=== PATIENT | female | born 1940 | race Asian ===

== ENCOUNTER → 2017-06-08 | Outpatient (CLI) | payer MEDICARE, OTHER ==
[~2017-06-08] MED LIST: ALLERCLEAR; ASCO250CH PO; ASPI81CH PO; CALCA500CH PO; CALCAVITD PO; CEFTR1PB IV; CENTRUM COMPLE1 EACH PO; Cleocin HCl150 MG PO; DIPATR PO; DIPH50 PO; DONE5 PO; ERGO400 PO; GLUCHON PO; LEVA1.25 IH; LEVFLO500 PO; MAGNESIUM; MELO7.5 PO; MULVITMINE PO; NAMENDA XR7 MG PO; OXYC5; POTASSIUM GLUCO99 MG PO; PRAV20 PO; SENN187; Zofran Odt4 MG PO
== END | disposition home or self-care (01) ==
LOC: LAB EV 19:03
DX: T24.201A Burn of second degree of unspecified site of right lower limb, except ankle and foot, initial encounter (principal)
CPT/HCPCS: 87070; 87077; 87086; 87186; 87205

== ENCOUNTER → 2017-10-04 | Outpatient (CLI) | payer MEDICARE, OTHER ==
[~2017-10-04] MED LIST changes: -LEVFLO500 PO; -Zofran Odt4 MG PO
[2017-10-04 09:47] LABS: Bilirubin, Urine Neg (Neg); Blood, Urine 3+ (Neg); Glucose Qualitative, Urine Neg (Neg); Ketones, Urine Neg (Neg); Leukocyte Esterase, Urine 3+ (Neg); Nitrite, Urine Neg (Neg); Protein, Urine 1+ (Neg); Specific Gravity, Urine 1.025 (1.003-1.022); Urobilinogen, Urine NORM (Normal)
[2017-10-04 09:57] LABS: Appearance, Urine Hazy (Clear); Color, Urine Yellow (P-Yellow)
[2017-10-04 10:02] LABS: Red Blood Cells, Urine Rare /hpf (0-2); Squamous Epithelial Cells Few /hpf (Few)
[2017-10-04 10:03] LABS: Bacteria Many /hpf
[2017-10-04 10:04] LABS: Calcium Oxalate Crystals Few /hpf
== END ==
LOC: LAB SHORT 09:38 → LAB 09:38
PROVIDERS: Internal Medicine
DX: R34 Anuria and oliguria (principal)
CPT/HCPCS: 81001; 87077; 87086; 87186

== ENCOUNTER 2018-02-02 18:35 | Emergency (ER) | payer MEDICARE, OTHER ==
[~2018-02-02] VITALS: Ht 149.9 cm; Wt 37.6 kg
== END 2018-02-02 19:44 | disposition home or self-care (01) ==
LOC: ER 18:35
DX: R04.0 Epistaxis (principal); K52.9 Noninfective gastroenteritis and colitis, unspecified; F03.90 Unspecified dementia, unspecified severity, without behavioral disturbance, psychotic disturbance, mood disturbance, and anxiety
CPT/HCPCS: 30901; 99283

== ENCOUNTER → 2018-08-21 | Outpatient (CLI) | payer MEDICARE, OTHER ==
[~2018-08-21] MED LIST changes: +LEVFLO500 PO; +Zofran Odt4 MG PO
== END | disposition home or self-care (01) ==
LOC: LAB SHORT 10:30 → LAB EV 10:30
DX: R35.8 Other polyuria (principal)
CPT/HCPCS: 87086

== ENCOUNTER → 2018-08-23 | Outpatient (CLI) | payer MEDICARE, OTHER | END | disposition home or self-care (01) | LOC: LAB SHORT 14:40 → LAB EV 14:40 | DX: R82.79 Other abnormal findings on microbiological examination of urine (principal) | CPT/HCPCS: 87086 ==

== ENCOUNTER 2018-08-25 22:47 | Emergency (ER) | payer MEDICARE, OTHER ==
[~2018-08-25] VITALS: Ht 152.4 cm; Wt 34.9 kg
== END 2018-08-26 00:15 | disposition home or self-care (01) ==
LOC: ER 22:47
DX: R31.9 Hematuria, unspecified (principal); J44.9 Chronic obstructive pulmonary disease, unspecified; I48.91 Unspecified atrial fibrillation; Z79.899 Other long term (current) drug therapy; Z79.82 Long term (current) use of aspirin
CPT/HCPCS: 99282

== ENCOUNTER 2018-09-13 02:48 | Emergency (ER) | payer MEDICARE, OTHER ==
[~2018-09-13] VITALS: Ht 152.4 cm; Wt 34.9 kg
[2018-09-13 03:29] LABS: Source, Urine Catheter
[2018-09-13 03:32] LABS: Bilirubin, Urine Neg (Neg); Blood, Urine 5+ (Neg); Glucose Qualitative, Urine Neg (Neg); Ketones, Urine Neg (Neg); Leukocyte Esterase, Urine 3+ (Neg); Nitrite, Urine Pos (Neg); Protein, Urine 3+ (Neg); Specific Gravity, Urine 1.025 (1.003-1.022); Urobilinogen, Urine NORM (Normal)
[2018-09-13 03:35] LABS: Appearance, Urine Turbid (Clear); Color, Urine Yellow (P-Yellow)
[2018-09-13] MEDS ORDERED: CEFD300 PO (03:38)
[2018-09-13 03:41] LABS: Bacteria Many /hpf; Red Blood Cells, Urine TNTC /hpf (0-2); Squamous Epithelial Cells Few /hpf (Few); White Blood Cells, Urine TNTC /hpf (0-5)
== END 2018-09-13 04:36 | disposition home or self-care (01) ==
LOC: ER 02:48
PROVIDERS: Emergency Medicine
DX: N39.0 Urinary tract infection, site not specified (principal); Z79.899 Other long term (current) drug therapy; Z79.82 Long term (current) use of aspirin; J44.9 Chronic obstructive pulmonary disease, unspecified; I48.91 Unspecified atrial fibrillation
CPT/HCPCS: 51702; 51798; 81001; 87077; 87086; 87186; 99283-25

== ENCOUNTER 2019-02-12 21:48 | Emergency (ER) | payer MEDICARE, OTHER ==
[~2019-02-12] VITALS: Ht 152.4 cm; Wt 35.8 kg
[~2019-02-12 21:48] MED LIST changes: +CEFD300 PO
== END 2019-02-13 02:47 | disposition home or self-care (01) ==
LOC: ER 21:48
DX: L50.9 Urticaria, unspecified (principal); M19.90 Unspecified osteoarthritis, unspecified site; J44.9 Chronic obstructive pulmonary disease, unspecified; I48.91 Unspecified atrial fibrillation; Z79.82 Long term (current) use of aspirin; Z79.899 Other long term (current) drug therapy
CPT/HCPCS: 96372; 99283; J3301; J7512; Q0163

== ENCOUNTER → 2019-04-20 | Outpatient (CLI) | payer MEDICARE, OTHER | END | disposition home or self-care (01) | LOC: LAB EV 16:13 → LAB SHORT 16:13 | DX: N39.0 Urinary tract infection, site not specified (principal) | CPT/HCPCS: 87077; 87086; 87186 ==

== ENCOUNTER → 2019-05-11 | Outpatient (CLI) | payer MEDICARE, OTHER ==
[2019-05-11 11:52] LABS: BASOPHILS ABSOLUTE AUTO 0.04 K/mm3 (0.00-0.23); BASOPHILS PERCENT AUTO 1 % (0-2); EOSINOPHILS ABSOLUTE AUTO 0.01 K/mm3 (0.00-0.68); EOSINOPHILS PERCENT AUTO 0 % (0-6); Hematocrit 47.2 % (33.0-51.0); Hemoglobin 15.5 g/dL (11.5-16.0); IMMATURE GRAN PERCENT AUTO 0 % (0-1); LYMPHOCYTES ABSOLUTE AUTO 1.18 K/mm3 (0.84-5.20); LYMPHOCYTES PERCENT AUTO 27 % (21-46); MONOCYTES ABSOLUTE AUTO 0.25 K/mm3 (0.16-1.47); MONOCYTES PERCENT AUTO 6 % (4-13); Mean Corpuscular HGB 31.3 pg (26.0-34.0); Mean Corpuscular HGB Conc 32.8 g/dL (31.5-36.5); Mean Corpuscular Volume 95 fL (80-100); Mean Platelet Volume 10.3 fL (9.1-12.4); NEUTROPHILS ABSOLUTE AUTO 2.94 K/mm3 (1.96-9.15); NEUTROPHILS PERCENT AUTO 67 % (41-73); Platelet Count 178 K/mm3 (150-400); RDW Coefficient Variation 12.7 % (11.7-14.2); RDW Standard Deviation 44.5 fL (35.1-46.3); Red Blood Cell Count 4.95 M/mm3 (3.80-5.20); White Blood Cell Count 4.42 K/mm3 (4.00-11.30)
[2019-05-11 12:18] LABS: Alanine Aminotransfer (ALT/SGP 28 U/L (12-78); Albumin, Blood 4.1 g/dL (3.4-5.0); Albumin/Globulin Ratio 1.4 (0.8-1.8); Alk Phos 63 U/L (40-126); Anion Gap 8 mmol/L (6-16); Bilirubin, Total 0.9 mg/dL (0.1-1.0); Blood Urea Nitrogen 14 mg/dL (8-24); Bun/Creatinine Ratio 36.8 (12.0-20.0); CO2, Blood 27 mmol/L (21-32); Calcium, Blood 9.2 mg/dL (8.5-10.1); Chloride, Blood 103 mmol/L (98-108); Creatinine, Blood 0.38 mg/dL (0.40-1.00); Glomerular Filtration Rate >60 (60-); Glucose, Blood 94 mg/dL (70-99); Potassium, Blood 4.3 mmol/L (3.5-5.5); Sodium, Blood 138 mmol/L (136-145); Total Protein, Blood 7.1 g/dL (6.4-8.2)
[2019-05-11 12:32] LABS: Aspartate Aminotrans (AST/SGOT 26 U/L (12-37)
== END | disposition home or self-care (01) ==
LOC: LAB SHORT 11:48 → LAB EV 11:48
PROVIDERS: Physician Assistant Medical
DX: R53.83 Other fatigue (principal); N39.0 Urinary tract infection, site not specified
CPT/HCPCS: 80053; 84443; 85025; 87086

== ENCOUNTER → 2019-07-25 | Outpatient (CLI) | payer MEDICARE, OTHER | END | disposition home or self-care (01) | LOC: LAB SHORT 11:00 → LAB EV 11:00 | DX: L72.9 Follicular cyst of the skin and subcutaneous tissue, unspecified (principal) | CPT/HCPCS: 87070; 87205 ==

== ENCOUNTER → 2019-09-11 | Outpatient (CLI) | payer MEDICARE, OTHER ==
[2019-09-11 12:11] LABS: BASOPHILS ABSOLUTE AUTO 0.04 K/mm3 (0.00-0.23); BASOPHILS PERCENT AUTO 1 % (0-2); EOSINOPHILS ABSOLUTE AUTO 0.04 K/mm3 (0.00-0.68); EOSINOPHILS PERCENT AUTO 1 % (0-6); Hematocrit 44.4 % (33.0-51.0); Hemoglobin 14.4 g/dL (11.5-16.0); IMMATURE GRAN ABSOLUTE AUTO 0.01 K/mm3 (0.00-0.10); IMMATURE GRAN PERCENT AUTO 0 % (0-1); LYMPHOCYTES ABSOLUTE AUTO 1.33 K/mm3 (0.84-5.20); LYMPHOCYTES PERCENT AUTO 23 % (21-46); MONOCYTES ABSOLUTE AUTO 0.31 K/mm3 (0.16-1.47); MONOCYTES PERCENT AUTO 5 % (4-13); Mean Corpuscular HGB 30.6 pg (26.0-34.0); Mean Corpuscular HGB Conc 32.4 g/dL (31.5-36.5); Mean Corpuscular Volume 95 fL (80-100); Mean Platelet Volume 10.4 fL (9.1-12.4); NEUTROPHILS ABSOLUTE AUTO 4.18 K/mm3 (1.96-9.15); NEUTROPHILS PERCENT AUTO 71 % (41-73); Platelet Count 173 K/mm3 (150-400); RDW Coefficient Variation 13.1 % (11.7-14.2); RDW Standard Deviation 45.3 fL (35.1-46.3); White Blood Cell Count 5.91 K/mm3 (4.00-11.30)
[2019-09-11 12:33] LABS: Alanine Aminotransfer (ALT/SGP 23 U/L (12-78); Albumin, Blood 3.7 g/dL (3.4-5.0); Alk Phos 65 U/L (40-126); Anion Gap 6 mmol/L (6-16); Aspartate Aminotrans (AST/SGOT 24 U/L (12-37); Bilirubin, Total 0.6 mg/dL (0.1-1.0); Blood Urea Nitrogen 18 mg/dL (8-24); Bun/Creatinine Ratio 38.3 (12.0-20.0); CO2, Blood 32 mmol/L (21-32); Calcium, Blood 9.8 mg/dL (8.5-10.1); Chloride, Blood 107 mmol/L (98-108); Creatinine, Blood 0.47 mg/dL (0.40-1.00); Globulin, Blood 3.7 g/dL (2.2-4.0); Glomerular Filtration Rate >60 (60-); Glucose, Blood 89 mg/dL (70-99); Potassium, Blood 4.2 mmol/L (3.5-5.5); Sodium, Blood 145 mmol/L (136-145); Total Protein, Blood 7.4 g/dL (6.4-8.2)
== END | disposition home or self-care (01) ==
LOC: LAB EV 12:07 → LAB SHORT 12:07
PROVIDERS: Physician Assistant
DX: R53.83 Other fatigue (principal); R94.6 Abnormal results of thyroid function studies
CPT/HCPCS: 80053; 84439; 84443; 84481; 85025; 87077; 87086; 87186

== ENCOUNTER → 2019-11-10 | Outpatient (CLI) | payer MEDICARE, OTHER ==
[~2019-11-10] MED LIST changes: +ASCO500 PO; +CALCIUM 600 +1 EA11 PO; +CENTRUM SILVER1 EAC2; +CEPH500 PO; +Citalopram HBr20 MG PO; +KEFLEX500 MG PO; +LORAZEPAM0.5 MG PO; +MEGESTROL400 MG/11 PO; +MELATONIN5 M1 PO; +Nitrofurantoin100 M1 PO; +TOCO1000 PO; +TRAZ50 PO
[2019-11-10 12:43] LABS: BASOPHILS ABSOLUTE AUTO 0.06 K/mm3 (0.00-0.23); BASOPHILS PERCENT AUTO 1 % (0-2); EOSINOPHILS ABSOLUTE AUTO 0.07 K/mm3 (0.00-0.68); EOSINOPHILS PERCENT AUTO 1 % (0-6); Hematocrit 43.4 % (33.0-51.0); Hemoglobin 14.7 g/dL (11.5-16.0); IMMATURE GRAN ABSOLUTE AUTO 0.03 K/mm3 (0.00-0.10); IMMATURE GRAN PERCENT AUTO 0 % (0-1); LYMPHOCYTES ABSOLUTE AUTO 1.16 K/mm3 (0.84-5.20); LYMPHOCYTES PERCENT AUTO 15 % (21-46); MONOCYTES ABSOLUTE AUTO 0.43 K/mm3 (0.16-1.47); MONOCYTES PERCENT AUTO 6 % (4-13); Mean Corpuscular HGB 31.2 pg (26.0-34.0); Mean Corpuscular HGB Conc 33.9 g/dL (31.5-36.5); Mean Corpuscular Volume 92 fL (80-100); Mean Platelet Volume 10.3 fL (9.1-12.4); NEUTROPHILS ABSOLUTE AUTO 5.82 K/mm3 (1.96-9.15); NEUTROPHILS PERCENT AUTO 77 % (41-73); Platelet Count 199 K/mm3 (150-400); RDW Coefficient Variation 13.2 % (11.7-14.2); RDW Standard Deviation 44.5 fL (35.1-46.3); Red Blood Cell Count 4.71 M/mm3 (3.80-5.20); White Blood Cell Count 7.57 K/mm3 (4.00-11.30)
[2019-11-10 12:57] LABS: Alanine Aminotransfer (ALT/SGP 22 U/L (12-78); Albumin, Blood 3.6 g/dL (3.4-5.0); Albumin/Globulin Ratio 1.1 (0.8-1.8); Alk Phos 71 U/L (40-126); Anion Gap 15 mmol/L (6-16); Aspartate Aminotrans (AST/SGOT 25 U/L (12-37); Bilirubin, Total 0.6 mg/dL (0.1-1.0); Blood Urea Nitrogen 14 mg/dL (8-24); Bun/Creatinine Ratio 37.8 (12.0-20.0); CO2, Blood 20 mmol/L (21-32); Calcium, Blood 9.3 mg/dL (8.5-10.1); Chloride, Blood 104 mmol/L (98-108); Creatinine, Blood 0.37 mg/dL (0.40-1.00); Globulin, Blood 3.3 g/dL (2.2-4.0); Glomerular Filtration Rate >60 (60-); Glucose, Blood 98 mg/dL (70-99); Potassium, Blood 4.4 mmol/L (3.5-5.5); Sodium, Blood 139 mmol/L (136-145); Total Protein, Blood 6.9 g/dL (6.4-8.2)
== END | disposition home or self-care (01) ==
LOC: LAB SHORT 12:39 → LAB EV 12:39
PROVIDERS: Physician Assistant
DX: R10.9 Unspecified abdominal pain (principal)
CPT/HCPCS: 80053; 85025

== ENCOUNTER 2019-11-30 11:14 | Emergency (ER) | payer MEDICARE, OTHER ==
[~2019-11-30] VITALS: Ht 152.4 cm; Wt 32.7 kg
[~2019-11-30 11:14] MED LIST changes: -CENTRUM SILVER1 EAC2; -KEFLEX500 MG PO; -Nitrofurantoin100 M1 PO
[2019-11-30 11:59] LABS: BASOPHILS ABSOLUTE AUTO 0.06 K/mm3 (0.00-0.23); BASOPHILS PERCENT AUTO 1 % (0-2); EOSINOPHILS ABSOLUTE AUTO 0.05 K/mm3 (0.00-0.68); EOSINOPHILS PERCENT AUTO 1 % (0-6); Hemoglobin 14.3 g/dL (11.5-16.0); IMMATURE GRAN ABSOLUTE AUTO 0.01 K/mm3 (0.00-0.10); IMMATURE GRAN PERCENT AUTO 0 % (0-1); LYMPHOCYTES PERCENT AUTO 26 % (21-46); MONOCYTES ABSOLUTE AUTO 0.26 K/mm3 (0.16-1.47); MONOCYTES PERCENT AUTO 6 % (4-13); Mean Corpuscular HGB 30.1 pg (26.0-34.0); Mean Corpuscular HGB Conc 31.8 g/dL (31.5-36.5); Mean Corpuscular Volume 95 fL (80-100); NEUTROPHILS PERCENT AUTO 66 % (41-73); Platelet Count 180 K/mm3 (150-400); RDW Coefficient Variation 12.1 % (11.7-14.2); RDW Standard Deviation 42.1 fL (35.1-46.3); Red Blood Cell Count 4.75 M/mm3 (3.80-5.20); White Blood Cell Count 4.58 K/mm3 (4.00-11.30)
[2019-11-30 12:20] LABS: Alanine Aminotransfer (ALT/SGP 27 U/L (12-78); Albumin, Blood 3.4 g/dL (3.4-5.0); Albumin/Globulin Ratio 0.9 (0.8-1.8); Alk Phos 100 U/L (50-136); Anion Gap 5 mmol/L (6-16); Aspartate Aminotrans (AST/SGOT 23 U/L (12-37); Bilirubin, Total 0.6 mg/dL (0.1-1.0); Blood Urea Nitrogen 9 mg/dL (8-24); Bun/Creatinine Ratio 19.6 (12.0-20.0); CO2, Blood 30 mmol/L (21-32); Calcium, Blood 8.9 mg/dL (8.5-10.1); Chloride, Blood 103 mmol/L (98-108); Creatinine, Blood 0.46 mg/dL (0.40-1.00); Globulin, Blood 3.6 g/dL (2.2-4.0); Glomerular Filtration Rate >60 (60-); Glucose, Blood 102 mg/dL (70-99); Potassium, Blood 3.7 mmol/L (3.5-5.5); Sodium, Blood 138 mmol/L (136-145)
[2019-11-30] MEDS ORDERED: KEFLEX500 MG PO (12:35)
[2019-11-30] MEDS ORDERED: CENTRUM SILVER1 EAC2 (12:36)
[2019-11-30] MEDS ORDERED: Nitrofurantoin100 M1 PO (12:36)
== END 2019-11-30 15:55 | disposition home or self-care (01) ==
LOC: ER 11:14
PROVIDERS: Emergency Medicine
DX: R53.1 Weakness (principal); R63.0 Anorexia; G30.9 Alzheimer's disease, unspecified; F02.80 Dementia in other diseases classified elsewhere, unspecified severity, without behavioral disturbance, psychotic disturbance, mood disturbance, and anxiety
CPT/HCPCS: 36415; 70450; 80053; 85025; 99284-25

== ENCOUNTER 2020-02-06 23:59 | Observation (INO) | payer MEDICARE, OTHER ==
[~2020-02-06] VITALS: Ht 152.4 cm; Wt 34.2 kg
[~2020-02-06 23:59] MED LIST changes: +CENTRUM SILVER1 EAC2; +KEFLEX500 MG PO; +Nitrofurantoin100 M1 PO
[2020-02-07 05:37] LABS: BASOPHILS ABSOLUTE AUTO 0.04 K/mm3 (0.00-0.23); BASOPHILS PERCENT AUTO 0 % (0-2); EOSINOPHILS ABSOLUTE AUTO 0.04 K/mm3 (0.00-0.68); EOSINOPHILS PERCENT AUTO 0 % (0-6); Hematocrit 39.7 % (33.0-51.0); Hemoglobin 12.3 g/dL (11.5-16.0); IMMATURE GRAN ABSOLUTE AUTO 0.04 K/mm3 (0.00-0.10); IMMATURE GRAN PERCENT AUTO 0 % (0-1); LYMPHOCYTES ABSOLUTE AUTO 0.89 K/mm3 (0.84-5.20); LYMPHOCYTES PERCENT AUTO 8 % (21-46); MONOCYTES ABSOLUTE AUTO 0.43 K/mm3 (0.16-1.47); MONOCYTES PERCENT AUTO 4 % (4-13); Mean Corpuscular HGB 29.5 pg (26.0-34.0); Mean Corpuscular Volume 95 fL (80-100); Mean Platelet Volume 9.9 fL (9.1-12.4); NEUTROPHILS ABSOLUTE AUTO 10.14 K/mm3 (1.96-9.15); NEUTROPHILS PERCENT AUTO 88 % (41-73); Platelet Count 200 K/mm3 (150-400); RDW Standard Deviation 45.4 fL (35.1-46.3); Red Blood Cell Count 4.17 M/mm3 (3.80-5.20); White Blood Cell Count 11.58 K/mm3 (4.00-11.30)
[2020-02-07 05:52] LABS: Anion Gap 5 mmol/L (6-16); Blood Urea Nitrogen 10 mg/dL (8-24); Bun/Creatinine Ratio 26.2 (12.0-20.0); CO2, Blood 27 mmol/L (21-32); Calcium, Blood 9.2 mg/dL (8.5-10.1); Chloride, Blood 110 mmol/L (98-108); Creatinine, Blood 0.38 mg/dL (0.40-1.00); Glomerular Filtration Rate >60 (60-); Glucose, Blood 106 mg/dL (70-99); Potassium, Blood 3.6 mmol/L (3.5-5.5); Sodium, Blood 142 mmol/L (136-145)
[2020-02-07 11:03] LABS: Source, Urine Clean Catch
[2020-02-07 11:06] LABS: Bilirubin, Urine Neg (Neg); Blood, Urine 5+ (Neg); Glucose Qualitative, Urine Neg (Neg); Ketones, Urine 1+ (Neg); Leukocyte Esterase, Urine Neg (Neg); Nitrite, Urine Neg (Neg); Protein, Urine 2+ (Neg); Specific Gravity, Urine 1.015 (1.003-1.022); Urobilinogen, Urine NORM (Normal)
[2020-02-07 11:11] LABS: Appearance, Urine Cloudy (Clear); Color, Urine Yellow (P-Yellow)
[2020-02-07 11:17] LABS: Red Blood Cells, Urine TNTC /hpf (0-2); Squamous Epithelial Cells Rare /hpf (Few)
[2020-02-07 11:18] LABS: Amorphous Mod (0-Heavy); Bacteria Few /hpf; Triple Phosphate Crystals Mod /hpf
--- NOTE | 2020-02-07 12:55 | NUR ---
TALKED TO [facility] ABOUT PATIENT. SHE STS SHE LEFT MESSAGE ON PALLIATIVE CARE VOICE MAIL. CALLED PALLIATIVE CARE, VERN FULLER, AND ADVISED HER OF PATIENT AND TO CALL [facility] FOR FOLLOW UP PATIENT MAY NEED PLACEMENT. TALKED TO VERN SOLIS ABOUT PATIENT. STS WILL CALL TO SEE WHAT NEEDS ARE.
--- NOTE | 2020-02-07 17:06 | NUR ---
ARRIVES FROM E.. THIS AM. WAS ON HOSPICE AT HOME AND GIVEN DOUBLE AMOUNT OF SEROQUEL LAST NIGHT WITH OPPOSITE EFFECT. PER PATIENT HAS STARTED TO BE COMBATIVE AND BITING HERSELF AND OTHERS X ONE WEEK. SPEECH SLURRED. BRUISING T/O WITH SKIN TEARS. SCREAMS OFTEN. UNABLE TO STAND AND LOOKS LIKE BRYNN. FOOT DROP WITH RT FOOT BRUISED. NORMALLY USES W/C AT HOME. PATIENT STS "SHE CAN WALK," BUT WHEN RN ATTEMPTS TO GET HER UP TO BSC PATIENT DOES NOT STAND. WCTM
--- NOTE | 2020-02-07 17:48 | NUR ---
PATIENT SEEMS TO DO BETTER WHEN IS NOT AROUND. STILL YELLS, BUT NOT OFTEN. ALSO STATED PATIENT SEEMS MORE AGITATED WITH HIM HE TELLS HER "NO OFTEN". WMTM
--- NOTE | 2020-02-08 04:51 | NUR ---
ENGRAVINGS POLISHER SUMMARY NO ACUTE CHANGES THIS SHIFT. PT AAO TO SELF ONLY. PT YELLS OUT FREQUENTLY. CAN BE REDIRECTED AND CAN ANSWER BASIC YES/NO QUESTIONS AT TIMES. PT REMAINS IN WRIST AND VEST RESTRAINTS DUE TO CONSTANTLY WANTING TO GET OUT OF BED WITHOUT ASSIST. PT DOES NOT WALK AT BASELINE, HAS CHRONIC FOOT DROP. VSS, WILL CONTINUE TO MONITOR.
[2020-02-08 05:18] LABS: BASOPHILS ABSOLUTE AUTO 0.04 K/mm3 (0.00-0.23); BASOPHILS PERCENT AUTO 0 % (0-2); EOSINOPHILS PERCENT AUTO 0 % (0-6); Hematocrit 41.7 % (33.0-51.0); Hemoglobin 12.9 g/dL (11.5-16.0); IMMATURE GRAN ABSOLUTE AUTO 0.06 K/mm3 (0.00-0.10); IMMATURE GRAN PERCENT AUTO 1 % (0-1); LYMPHOCYTES ABSOLUTE AUTO 0.76 K/mm3 (0.84-5.20); LYMPHOCYTES PERCENT AUTO 7 % (21-46); MONOCYTES ABSOLUTE AUTO 0.33 K/mm3 (0.16-1.47); MONOCYTES PERCENT AUTO 3 % (4-13); Mean Corpuscular HGB 29.5 pg (26.0-34.0); Mean Corpuscular HGB Conc 30.9 g/dL (31.5-36.5); Mean Corpuscular Volume 95 fL (80-100); NEUTROPHILS ABSOLUTE AUTO 9.04 K/mm3 (1.96-9.15); NEUTROPHILS PERCENT AUTO 88 % (41-73); Platelet Count 263 K/mm3 (150-400); RDW Coefficient Variation 12.8 % (11.7-14.2); RDW Standard Deviation 45.3 fL (35.1-46.3); Red Blood Cell Count 4.38 M/mm3 (3.80-5.20); White Blood Cell Count 10.23 K/mm3 (4.00-11.30)
[2020-02-08 05:38] LABS: Alanine Aminotransfer (ALT/SGP 44 U/L (12-78); Albumin, Blood 3.5 g/dL (3.4-5.0); Albumin/Globulin Ratio 0.9 (0.8-1.8); Alk Phos 107 U/L (50-136); Anion Gap 11 mmol/L (6-16); Aspartate Aminotrans (AST/SGOT 48 U/L (12-37); Blood Urea Nitrogen 11 mg/dL (8-24); Bun/Creatinine Ratio 34.5 (12.0-20.0); CO2, Blood 24 mmol/L (21-32); Calcium, Blood 8.7 mg/dL (8.5-10.1); Chloride, Blood 104 mmol/L (98-108); Creatinine, Blood 0.32 mg/dL (0.40-1.00); Globulin, Blood 3.9 g/dL (2.2-4.0); Glomerular Filtration Rate >60 (60-); Glucose, Blood 99 mg/dL (70-99); Potassium, Blood 2.9 mmol/L (3.5-5.5); Sodium, Blood 139 mmol/L (136-145); Total Protein, Blood 7.4 g/dL (6.4-8.2)
--- NOTE | 2020-02-08 08:57 | NUR ---
ATTEMPT TO REACH DR. ALVARADO BY PHONE ABOUT LABS AND BLD PRESS. PHONE NUMBER NOT GOING THRU. WILL TRY LATER
--- NOTE | 2020-02-08 10:30 | NUR ---
AWARE OF LABS. STS WILL ORDER IV.
--- NOTE | 2020-02-08 14:06 | NUR ---
TALKED TO ABOUT PATIENT WITH INCREASE MUCOUS UPPER AIRWAY. ORAL SUCTIONING DONE, BUT PERHAPS SOME DEEP SUCTIONING. ORDER DUONEB Q 4 PRN AND RT TO DEEP SUCTION
--- NOTE | 2020-02-08 14:43 | NUR ---
REQUEST SCOPALOMINE PATCH FROM DR. EDUARDO. OK TO ORDER
--- NOTE | 2020-02-08 14:45 | NUR ---
R.T. DID DEEP SUCTIONING AND BREATHING TREATMENT WITH SOME RELIEF.
--- NOTE | 2020-02-08 15:24 | NUR ---
OK TO RENEW DOMITILA VEST RESTRAINT PER
--- NOTE | 2020-02-08 16:34 | NUR ---
UPDATED ON PATIENT. AWARE RETAIL DELIVERY DRIVER ORDERED. AWARE PATIENT HAD SOME INCREASE SECRETIONS WHICH SHE WAS SUCTIONED AND SCOPALOMINE PATCH WAS PLACED. PATIENT HAS NOT BEEN SCREAMING TODAY. ADVISED TO CALL BACK ANYTIME FOR UPDATE.
--- NOTE | 2020-02-08 17:29 | NUR ---
TALKED TO ABOUT; SOMETHING FOR CONSTIPATION, IV MEDS FOR POTASSIUM AND PSCYH EVAL FOR CHANGE IN MEDS AT HOME. OK FOR RN TO ORDER CONSULT AND WILL SEND SHEET TO Singh
--- NOTE | 2020-02-08 18:22 | NUR ---
ADVISED THAT EARLIER; I SUCTIONED PATIENT, R.T. DID DEEP SUCTIONING, AND SCOPALOMINE PATCH PLACED AND IT SEEMED TO HELP A LITTLE. NOW BACK TO UPPER AIRWAY CONGESTION AND I HAVE SUCTIONED, HAVE CALL OUT TO R.T. TO COME AND DEEP SUCTION, ON 5 LPM W/SATS IN 90'S. NO NEW ORDERS. WATCH. IF DESAT CAN CALL BACK.
--- NOTE | 2020-02-08 19:13 | NUR ---
ALERT TO SELF. GARBLED SPEECH WHICH STS IS NORMAL FOR HER. BRIEFS CHANGED MULTIPLE TIMES T/O SHIFT. IN TO SEE PATIENT AGAIN NEAR END OF SHIFT W/MULTIPLE ORDERS. PATIENT DID NOT LET R.T. DO DEEP SUCTIONING AT THIS TIME. R.T. TO RETURN LATER TO ATTEMPT AGAIN. PATIENT REFUSED ALL FOOD TODAY EVEN W/STAFF TRYING TO ASSIST IN FEEDING. PATIENT APPEARS TO BE HALLUCINATING OFF AND ON TODAY. GRABBING AT THINGS IN THE AIR. MEPILEX TO MULTIPLE BRUISING AND SKIN TEARS. REPORT TO NIGHT RN
--- NOTE | 2020-02-09 00:58 | NUR ---
CHANGE IN CONDITION PT HR BECOMING VERY SPORADIC ON OXYMETER. HR RANGES FROM 60-130'S AT TIMES. PT AGITATED AND FLAILING ARMS AND LEGS SPORADICALLY. GIVEN IM ZYPREXA WHICH DID CALM PT DOWN A BIT HOWEVER PT STILL FLAILING ARMS AND LEGS. HR STILL UP AND DOWN FROM MINUTE TO MINUTE. NOTIFIED DR WRIGHT REGARDING FLAILING ARMS/LEGS AND CHANGE IN HR. RECIEVED ORDER FOR IV COGENTIN TO HELP WITH POSSIBLE EXTRAPYRAMIDAL SYMPTOMS. PER DR WRIGHT, MONITOR PT FOR AN HOUR AFTER MAID HOUSEKEEPER AND CALL HIM BACK IF SYMPTOMS PERSIST AND HR REMAINS ELEVATED. WILL CONTINUE TO MONITOR PT.
--- NOTE | 2020-02-09 05:08 | NUR ---
PLUMBING ASSEMBLER INSTALLER SUMMARY PT LESS INTERACTIVE WITH STAFF AND MENTATION SEEMS TO BE DECLINING. PT OFTEN STARES OFF INTO SPACE. PT HAVING FREQUENT FLAILING OF ARMS AND LEGS THROUGH THE NIGHT, SEE PREVIOUS NOTE. COGENTIN SEEMED TO HELP MINIMALLY, PT STILL FLAILING AT TIMES LIKE SHE IS REACHING OUT FOR SOMETHING. PT DID RECIEVE IM ZYPREXA WELL WHICH INCREASED SOMNOLENCE. PT CONTINUED TO BE TACHYCARDIC, RECIEVED ORDER FROM DR WRIGHT FOR TELEMETRY AND IV LOPRESSOR. PER RETORT OPERATOR, PT HR RANGING FROM 90-120'S W/ PVC'S PRIOR TO LOPRESSOR. HR DOWN TO 80-90'S AFTER LOPRESSOR. OTHER VSS, WILL CONTINUE TO MONITOR.
[2020-02-09 05:59] LABS: Anion Gap 11 mmol/L (6-16); Blood Urea Nitrogen 15 mg/dL (8-24); Bun/Creatinine Ratio 25.6 (12.0-20.0); CO2, Blood 22 mmol/L (21-32); Calcium, Blood 9.2 mg/dL (8.5-10.1); Chloride, Blood 105 mmol/L (98-108); Creatinine, Blood 0.59 mg/dL (0.40-1.00); Glomerular Filtration Rate >60 (60-); Glucose, Blood 111 mg/dL (70-99); Potassium, Blood 3.8 mmol/L (3.5-5.5); Sodium, Blood 138 mmol/L (136-145)
--- NOTE | 2020-02-09 10:13 | NUR ---
Received call from RN reporting s/s managment issues due to agitation. Medications that are currently ordered discussed and plan of care recommended. Pt was admitted per recommendation of [facility] batch unloader and vice president medical affairs due to medication rx and husbands inability to manage s/s and care at home. T/C to [facility] community care coord and also spoke with [facility] Metrology Specialist re: request to place on comfort care here in the hospital since she is a current hospice pt for ES dementia. RN and Shanna from [facility] will discuss with Dr. Galindo to f/u for full assessment later today.
--- NOTE | 2020-02-09 13:19 | NUR ---
PT IS ORIENTED TO SELF, ANSW YES/NO TO SIMPLE QUESTIONS. HX ALZ/DEM. HER IN THIS AM STATE PT HAS BEEN ON HOSPICE @ HOME. DR AGUAYO IN TO SEE HIM, CHANGE PT STATUS TO COMFORT CARE @ THIS TIME. PALLIATIVE CARE RN NOTIFIED. [facility] D/C FOOD INSPECTOR WILL ARRANGE FOR EXTRA SUPPORT @ HOME & D/C WHEN APPROP. PT FREQUENTLY ASKS FOR FLUIDS, STATES HUNGER. REQUIRES THICKENED FLUIDS, ASSIST w EATING, ENCOURAGE SM BITES SLOWLY D/T ASP RISK. SHE PREFERS TO SIT UP IN BED FOR COMFORT. SX @ BEDSIDE.
--- NOTE | 2020-02-09 15:59 | NUR ---
ASSISTED PT w LUNCH, SHE STATE HUNGER, ENCOURAGED SM BITES SLOWLY, SHE EAT APPROX 20%, STATE SATISFIED/FULL. ORAL CARE PROVIDED. VP RESPIRATORY PROVIDE COMPLETE BEDBATH. PT REPOSITIONED FOR COMFORT. NO S/S PAIN.
--- NOTE | 2020-02-09 16:01 | NUR ---
PT RESTING/SLEEPING. PALLIATIVE CARE RN CALL TO CHECK ON MEDICATIONS NEEDS, NO SIGNIFICANT PAIN OR ANXIETY SO FAR TODAY. RESTRAINTS DC'D AFTER LUNCH. PT TOO WEAK TO GET OOB, CAMERA MX CONTINUES.
--- NOTE | 2020-02-09 16:56 | NUR ---
AVIATION PROJECT MANAGER IN TO CHANGE ATTENDS, REPOSITION, PROVIDE ORAL CARE. SM BITES APLESAUCE GIVEN. PT @ THIS TIME INCREASINGLY RESTLESS, AGITATED. PRN ZYPREXA 10MG IM GIVEN, WILL MX FOR RESULTS. SHE CONTINUES OUT OF RESTRAINT @ THIS TIME HOWEVER HIGH FALL RISK, CAMERA MX CONTINUES.
--- NOTE | 2020-02-09 17:17 | NUR ---
Initial spiritual care note: Makayla was alone in room. She was flailing her arms and legs randomly. She appeared to be trying to say something but could not. She did not respond to me verbally but met my eyes when I spoke to her. Speech was unintelligible. Per chart, she is non-latter-day. She does appear quite frail. I will remain available to pt and family for emotional support.
--- NOTE | 2020-02-09 18:24 | NUR ---
ANXIETY/AGITATION RELIEF FOLLOWING ZYPREXA ADMIN. PT CALMER, NOT YELLING OUT. BIODIESEL PLANT OPERATIONS ENGINEER OFFER DINNER HOWEVER PT DECLINE @ THIS TIME. CHANGED DIET TEXTURE TO PUREE D/T DIFFICULTY w SWALLOW. PT REPOSITIONED.
--- NOTE | 2020-02-10 05:34 | NUR ---
COMPUTING SERVICES DIRECTOR SUMMARY NO ACUTE CHANGES. PT CONTINUES ON COMFORT MEASURES. DENIES PAIN. PT A BIT MORE CALM TONIGHT, NOT THRASHING ARMS AND LEGS AROUND MUCH. A BIT MORE TALKATIVE TONIGHT WELL. PT EXPRESSES THAT SHE WANTS TO GO HOME. PT HAS SLEPT OFF AND ON THROUGH THE NIGHT. WILL CONTINUE TO MONITOR.
--- NOTE | 2020-02-10 07:39 | NUR ---
PT IS RESTING QUIETLY @ ONSET OF SHIFT, SLEEPING. LUNGS ARE COARSE, BREATHING IS UNLABORED APPROX 16 RESP/MIN. HRR w MURMUR 76 BPM. BT HYPO T/O. SCATTERED WOUNDS/ABRASIONS w DRSGS CDI. ATTENDS DRY @ THIS TIME. WILL MX & PROVIDE COMFORT CARE.
--- NOTE | 2020-02-10 10:20 | NUR ---
PT REQUEST UP TO BR HOWEVER TO WEAK TO AMBULATE, 2 ASSIST STAND/PIVOT TO BSC, MINIMAL WT BRG. INCONT SM AMT URINE ATTENDS CHANGED. EQUINE INTERNSHIP ASSIST HER TO EAT PUREE/NECTAR THICK BF, GOOD APPETITE. SHE STATE NO PAIN, DECLINE PRN MED. SPEECH VERY WEAK, DIFFICULT TO COMPREHEND. PT REPOSITIONED IN BED FOR COMFORT.
--- NOTE | 2020-02-10 10:30 | NUR ---
COMFORT CARE VISIT MADE - Pt sitting in bed, speaking to me but I am unable to understand what she is saying. I offered her a spoon of thickened liquid on table and she readily accepted that. She is not as agitated as yesterday but does continue to talk nonstop while I am in the room. Her is not present currently. I am not observing any nonverbal indicators of pain at this time.
--- NOTE | 2020-02-10 12:17 | NUR ---
DR AGUAYO IN TO SEE PT, SHE CONTINUES TO STATE NO PAIN THIS AM. SHE IS ABLE TO INTERACT w SOMEWHAT. DR AGUAYO STATE WE WILL PLAN FOR RETURN HOME w HOSPICE POSSIBLY TODAY IF HER IS PREPARED, [facility] D/C FORECLOSURE FIELD INSPECTOR SALAS WILL MAKE ARRANGEMENTS.
--- NOTE | 2020-02-10 12:19 | NUR ---
PT SITTING UP IN BED FOR LUNCH LUNCH, STORE CUSTODIAN WILL ASSIST. NO PAIN ISSUES.
[2020-02-10] MEDS ORDERED: DOCU100 PO (15:24)
[2020-02-10] MEDS ORDERED: MIRALAX17 GM PO (15:25)
[2020-02-10] MEDS ORDERED: MORP20L PO (15:29)
[2020-02-10] MEDS ORDERED: OLAN5A MM (15:31)
--- NOTE | 2020-02-10 15:33 | NUR ---
DR AGUAYO PLACE ORDERS FOR D/C HOME w [facility]. ANTONIO CAREMANAGER CONTACT TO ASSURE READY TO ACCEPT PT HOME, CAREMANAGERS ARRANGE HOME HOSPICE RESUME, ARRANGE TRANSPORTATION HOME w [facility] @ 1730. NEW SCRIPTS FAXED TO [facility]. CATRACHITA, CHILD WELFARE WORKER STATE WILL NOT NEED HARD COPY ROXANOL SCRIPT, OK TO SHRED @ THIS TIME, ROBB NOTIFIED. CALLED PT'S FOR D/C INSTRUCT w EMPHASIS ON NEW MEDS. FLUXER PREPARE PT FOR D/C HOME. SHE CONTINUES W/O PAIN OR AGITATION.
--- NOTE | 2020-02-10 16:17 | NUR ---
PT BECOME SOMEWHAT AGITATED, WANTING TO GET OOB HOWEVER SHE IS TOO WEAK @ THIS TIME, ATTEMPTS TO CALM HER UNSUCCESSFUL. PRN ZYPREXA 10MG IM GIVEN R THIGH, 2 THIS TIME PT CALMING SOMEWHAT. CALL TO HUSBANDM TO UPDATE ZYPREXA ADMIN TIME, HE VERBALIZE UNDERSTANDING STATE PHARMACY WILL NOT HAVE ZYPREXA AVAIL UNTIL TOMORROW.
--- NOTE | 2020-02-10 17:02 | NUR ---
SKIN TEAR DRSGS CHANGED. IV D/C INTACT. PT CALM @ THIS TIME, ZYPREXA EFFECTIVE. [facility] HERE FOR GURNEY TRANSFER TO HER HOME. SHE IS AWAKE, QUIET, NO S/S PAIN.
== END 2020-02-10 16:55 | disposition hospice, home (50) ==
LOC: ER 23:59 → MEDS 02-07 → ER 02-07 07:49 → MEDS 02-07 07:49
PROVIDERS: Emergency Medicine; Internal Medicine; ADMIT Internal Medicine
DX: G92 Toxic encephalopathy (principal); G30.9 Alzheimer's disease, unspecified; F02.80 Dementia in other diseases classified elsewhere, unspecified severity, without behavioral disturbance, psychotic disturbance, mood disturbance, and anxiety; Z66 Do not resuscitate; Z79.899 Other long term (current) drug therapy; J45.909 Unspecified asthma, uncomplicated; E78.00 Pure hypercholesterolemia, unspecified; Z88.8 Allergy status to other drugs, medicaments and biological substances
CPT/HCPCS: 31720; 36415; 80048; 80053; 81001; 85025; 94640; 94762; 96361; 96372; 96374; 96375; 99284; G0378; J0515; J1200; J1650; J1940; J3480; J7030